=== PATIENT | female | born 1930 | race Caucasian/White ===

== ENCOUNTER 2016-11-15 19:33 | Inpatient (IN) ==
[2016-11-15] MEDS ORDERED: *HR* Morphine 2 MG/ML SYRINGE IVP ONE (22:08)
[2016-11-15] MEDS ORDERED: *HR* Heparin 5,000 UNIT/ML VIAL IVP ONE (22:08)
[2016-11-15] MEDS ORDERED: *HR* Heparin 5,000 UNIT/ML VIAL IVP PRN ×2 (22:08)
--- NOTE | 2016-11-15 22:10 | Emergency Department Note ---
START Narrative - START START: I examined this patient and my medical decision-making was reviewed with the [employer] OFFICIAL/PA/Advanced Practice Nurse/Resident Physician. I agree with the documented findings, disposition and treatment plan as described except to the extent set forth below. ED attending note: Patient seen with emergency medicine resident Dr. Ziegler. Please see a copy of his note for details of the H&P, evaluation, management and disposition of this patient. We independently had [id number] contact with the patient Briefly: A 86-year-old female otherwise healthy aside from hypertension several days of atraumatic pain and swelling of her entire left leg. Went to urgent care center today referred to the ER for further evaluation. Doppler study was ordered she has extensive DVT from the common iliacs all the way distally. Patient will be admitted and anticoagulated with baseline labs. Provided 45 minutes of critical care services for this patient. Denies chest pain or shortness of breath.
[2016-11-15] MEDS ORDERED: 0.9 % Sodium Chloride 1,000 ML IVC SCH (22:15)
--- NOTE | 2016-11-15 22:15 | Emergency Department Note ---
Disposition Clinical Impression: Deep vein thrombosis of lower extremity Qualifiers: Affected thrombotic vein of extremity: iliac Laterality: left Chronicity: acute Qualified Code(s): I82.422 - Acute embolism and thrombosis of left iliac vein Disposition: Admitted As Inpatient Condition: Undetermined Referrals: Renetta Dwyer CNP [Primary Care Provider] - Forms: ED Satisfaction Letter Time of Disposition: 23:35 Extremity Problem HPI - General Chief complaint: ED Extremity Problem,Nontraumatic Stated complaint: Leg and Foot pain, sent from pcp Time Seen by Provider: 11/15/16 21:37 Source: patient Mode of arrival: ambulatory Limitations: no limitations Nursing Notes Reviewed: Yes Vital Signs Reviewed: Yes - History of Present Illness HPI Narrative: 86-year-old female with history of hypertension arrives to [facility] emergency department after she states noticed swelling in her left lower extremity that started last night. Patient states that it is progressively got worse and she is having associated pain with it. She does admit to redness and swelling her left lower extremity. She denies any chest pain or difficulty breathing. The patient went to urgent care in [facility] who told her to come to the emergency department for further evaluation and she would need a DVT study. The patient denies any previous history of PE or DVT. The patient was brought in through triage and had a DVT study performed in the waiting area. This revealed a large thrombus proximal to the distal iliac all the way down her left lower extremity. The patient was brought back to a room at that time for further evaluation and workup. The patient denies any other complaints other than the pain associated with the left lower extremity. The patient denies any active cancers, recent surgeries, recent immobilizations, family history of PE or DVT. Pt Subjective Complaint: extremity pain, extremity swelling Onset (ago): day(s) (1) Consistency: constant Injury Location: left, lower extremity Pain Scale: 8 Quality: aching Radiation: none Improves with: nothing Worsens with: nothing Associated symptoms: Reports: denies other symptoms - Related Data Home Medications Medication Instructions Recorded Confirmed Adult Multivitamin Gummies 04/10/16 04/10/16 Cyclobenzaprine 04/10/16 Fish Oil 04/10/16 Fosamax 04/10/16 Gabapentin Enacarbil 04/10/16 Levothyroxine 04/10/16 Lisinopril 04/10/16 Miacalcin 04/10/16 Helena 10-325 mg 04/10/16 Pravastatin Sodium 04/10/16 Triamterene 04/10/16 Vitamin D 04/10/16 Zantac 04/10/16 Previous Rx's Medication Instructions Recorded Dicyclomine [Bentyl] 10 mg PO TID PRN #10 capsule 04/10/16 Loperamide [Imodium] 2 mg PO ONCE PRN #6 capsule 04/10/16 Meclizine [Antivert] 12.5 mg PO TID PRN #15 tablet 07/27/16 Ondansetron ODT [Zofran ODT] 4 mg SL Q8HR PRN #12 tab.rapdis 07/27/16 Allergies Allergy/AdvReac Type Severity Reaction Status Date / Time prednisone Allergy Nausea Verified 11/15/16 20:10 Sulfa (Sulfonamide Allergy Rash Verified 11/15/16 20:10 Antibiotics) Review of Systems: Review of Systems Constitutional: Denies fevers, chills, HEENT: Denies headache, Respiratory: Denies cough, sputum change, dyspnea Cardiac: Denies chest pain, pressure, palpitations, dyspnea on exertion, admits to left lower extremity pedal edema Gastrointestinal: Denies abdominal pain, changes in bowel habits, vomiting, nausea Genitourinary: Denies dysuria, Neurologic: Denies headaches, dizziness, syncope, focalized weakness, paraesthesias, weakness Musculoskeletal: Denies back pain, joint pain, myalgias All systems ED: reviewed and negative except as stated. Past Medical History - Past Medical History Attestation: Yes The following information was validated with the patient. Source: patient Medical history: Reports: hyperlipidemia, hypertension, thyroid disease, other Surgical history: Reports: cholecystectomy Psychiatric history: Reports: depression - Social History Smoking Status: Never smoker Smokeless Tobacco Status: No Alcohol use: Reports: none Drug use: Reports: none Physical Exam Physical Exam: General: Patient alert, no acute distress, not lethargic HEENT: Head normal inspection, atraumatic, PERRLA, oropharynx grossly intact and normal, trachea midline, no JVD Chest: Nontraumatic, nontender, normal chest rise CV: RRR with no murmurs, rubs, gallops Respiratory: Lungs clear to auscultation bilaterally, no rales, rhonchi, wheezes. Abdomen: Normal inspection, Normal bowel sounds 4 quadrants, nontender to palpation : Patient deferred Extremities: Left lower extremity swelling and erythema with ecchymotic appearing distal extremity in the left lower extremity, tenderness to calf and thigh on palpation. full range of motion, appropriate pulses, capillary refill under 2 seconds Neurological: Patient alert and oriented 3, cranial nerves II through XII grossly intact, GCS 15 Skin: Warm, intact, no rashes noted - General Limitations: no limitations General appearance: alert Course Vital Signs Temperature 98.3 F 11/15/16 20:07 Pulse Rate 91 11/15/16 20:07 Respiratory Rate 16 11/15/16 20:07 Blood Pressure 144/84 11/15/16 20:07 O2 Sat by Pulse Oximetry 98 11/15/16 20:07 Temperature 98.3 F 11/15/16 20:07 Pulse Rate 91 11/15/16 20:07 Respiratory Rate 16 11/15/16 20:07 Blood Pressure 144/84 11/15/16 20:07 O2 Sat by Pulse Oximetry 98 11/15/16 20:07 Oxygen Delivery Oxygen Delivery Room Air Extremity Problem, Nontraumati - MDM Narrative Medical decision making narrative: Dr. Mcdaniel accepts - Lab Data Lab results reviewed: Yes I reviewed the patient's lab results. Result diagrams: 11/15/16 22:24 11/15/16 22:24 Lab Results 11/15/16 11/15/16 11/15/16 Range/Units 22:24 22:24 22:24 WBC 8.3 (4.3-11.1) K/mcL RBC 4.70 (3.82-4.97) M/mcL Hgb 14.4 (11.5-15.4) g/dL Hct 43.1 (35.3-44.9) % MCV 91.7 (83.0-100.0) fL MCH 30.6 (28.0-33.3) pg MCHC 33.4 (31.6-35.5) g/dL RDW 12.8 (11.5-14.5) % Plt Count 133 L (140-400) K/mcL MPV 8.7 L (9.4-12.4) fL Immature Gran % 0.4 (0-4) % Seg Neutrophils % 68.7 % Lymphocytes % 17.8 % Monocytes % 9.7 % Eosinophils % 2.9 % Basophils % 0.5 % Neutrophils # 5.7 (1.6-8.9) K/mcL Lymphocytes # 1.5 (0.6-4.6) K/mcL Monocytes # 0.8 (0.0-1.3) K/mcL Eosinophils # 0.2 (0.0-0.6) K/mcL Basophils # 0.0 (0.0-0.2) K/mcL PT 10.9 (9.4-12.1) Seconds INR 1.0 APTT 31.9 (26.0-36.0) Seconds Sodium 138 (136-145) mEq/L Potassium 3.8 (3.5-4.5) mEq/L Chloride 102 (98-109) mEq/L Carbon Dioxide 26 (19-29) mEq/L BUN 32 H (7-20) mg/dL Creatinine 1.97 H (0.57-1.11) mg/dL Est GFR ( Amer) 29 L (> 60) Est GFR (Non-Af Amer) 24 L (> 60) BUN/Creatinine Ratio 16 (6-26) Glucose 109 H (70-99) mg/dL Calculated Osmolality 293 (280-300) Calcium 10.3 (8.6-10.8) mg/dL Troponin I (0-0.03) ng/mL 11/15/16 Range/Units 22:24 WBC (4.3-11.1) K/mcL RBC (3.82-4.97) M/mcL Hgb (11.5-15.4) g/dL Hct (35.3-44.9) % MCV (83.0-100.0) fL MCH (28.0-33.3) pg MCHC (31.6-35.5) g/dL RDW (11.5-14.5) % Plt Count (140-400) K/mcL MPV (9.4-12.4) fL Immature Gran % (0-4) % Seg Neutrophils % % Lymphocytes % % Monocytes % % Eosinophils % % Basophils % % Neutrophils # (1.6-8.9) K/mcL Lymphocytes # (0.6-4.6) K/mcL Monocytes # (0.0-1.3) K/mcL Eosinophils # (0.0-0.6) K/mcL Basophils # (0.0-0.2) K/mcL PT (9.4-12.1) Seconds INR APTT (26.0-36.0) Seconds Sodium (136-145) mEq/L Potassium (3.5-4.5) mEq/L Chloride (98-109) mEq/L Carbon Dioxide (19-29) mEq/L BUN (7-20) mg/dL Creatinine (0.57-1.11) mg/dL Est GFR ( Amer) (> 60) Est GFR (Non-Af Amer) (> 60) BUN/Creatinine Ratio (6-26) Glucose (70-99) mg/dL Calculated Osmolality (280-300) Calcium (8.6-10.8) mg/dL Troponin I 0.01 (0-0.03) ng/mL - Radiology Data Radiology results reviewed: Yes I reviewed the patient's radiology results. - EKG Data EKG attestation: Yes I reviewed and interpreted this EKG. EKG results narrative: Heart rate 73 bpm. MT interval 118 ms. QTC 46 ms. Normal axis. Normal sinus rhythm. Left axis deviation noted. EKG from 07/27/2016 identical in appearance. No acute changes noted.
[2016-11-15 22:32] LABS: Basophils % 0.5 %; Eosinophils # 0.2 K/mcL (0.0-0.6); Eosinophils % 2.9 %; Hematocrit 43.1 % (35.3-44.9); Hemoglobin 14.4 g/dL (11.5-15.4); Immature Granulocytes % 0.4 % (0-4); Lymphocytes # 1.5 K/mcL (0.6-4.6); Lymphocytes % 17.8 %; Mean Corpuscular HGB Conc 33.4 g/dL (31.6-35.5); Mean Corpuscular Hemoglobin 30.6 pg (28.0-33.3); Mean Corpuscular Volume 91.7 fL (83.0-100.0); Mean Platelet Volume 8.7 fL (9.4-12.4); Monocytes # 0.8 K/mcL (0.0-1.3); Monocytes % 9.7 %; Neutrophils # 5.7 K/mcL (1.6-8.9); Platelet Count 133 K/mcL (140-400); Red Cell Distribution Width 12.8 % (11.5-14.5); Segmented Neutrophils % 68.7 %
[2016-11-15 22:37] LABS: Prothrombin Time 10.9 Seconds (9.4-12.1)
[2016-11-15 22:40] LABS: Activated Partial Thrombo Time 31.9 Seconds (26.0-36.0)
[2016-11-15 22:48] LABS: Calcium 10.3 mg/dL (8.6-10.8); Potassium 3.8 mEq/L (3.5-4.5)
[2016-11-15] MEDS: Heparin 25,000 UNIT/500 ML D5W 25,000 UNIT/500 ML MLS IVC SCH (22:58)
[2016-11-16] MEDS ORDERED: Acetaminophen 325 MG TABLET PO PRN (01:07)
[2016-11-16] MEDS ORDERED: Naloxone 0.4 MG/ML INJ IVP PRN (01:07)
--- NOTE | 2016-11-16 01:07 | Internal Med History&Physical ---
<Nacho Mayers - Last Filed: 11/16/16 02:18> Date of Encounter: 11/16/16 Time of Encounter: 00:30 Assessment and Plan (1) Deep vein thrombosis of lower extremity Current visit: Yes Status: Acute After presentation of unilateral leg swelling and pain, patient found to have extensive DVT extending from iliac downward on left side (though there is some concern from the preliminary vascular report that the DVT extends upward beyond the iliac). Patient does not appear to have any PE currently. Aside from sitting a couple hours yesterday, she does not appear to have any personal or family risk factors for development of a DVT, that raises concern for an occult malignancy given patient's age. Continue patient on heparin drip Obtain VQ scan, given sedative patient kidneys unable to have CTA, and echocardiogram, to evaluate for right heart strain and assess left ventricular function Will order factor V Leiden, protein C, protein S We will consult hematology for assistance with continued workup We will consult interventional radiology for consideration of catheter directed thrombolysis We will order as needed Tylenol, Cameron, morphine for patient pain Qualifiers: Affected thrombotic vein of extremity: iliac Laterality: left Chronicity : acute Qualified Code(s): I82.422 - Acute embolism and thrombosis of left iliac vein (2) Chronic kidney disease (CKD) Current visit: Yes Status: Acute Per the prior chemistry performed at [facility], patient appears to have chronic kidney disease stage IV, though she is on the border between stage III-IV. Baseline GFR appears to be around 29. Currently GFR is at 24, which is low for her but not concerning for an acute event. We will hold her blood pressure medications as these can have a negative impact on her kidneys and she has not shown to have hypertension currently. Patient could also be slightly dehydrated given her age and being on 2 diuretic medications. We will hold her antihypertensive medications We will continue maintenance fluids at 75 mils an hour Patient will be receiving fluid with heparin drip Qualifiers: Chronic kidney disease stage: stage 4 (severe) Qualified Code(s): N18.4 - Chronic kidney disease, stage 4 (severe) (3) Chest pain Current visit: Yes Status: Acute Patient describes achy-sharp chest pain that began suddenly after being moved ( not moving herself) that is exacerbated by movement, [id number], and reproducible with palpation. EKG showed no acute changes concerning for ischemia and initial troponin was negative. It is unlikely a pulmonary embolism as there is no tachycardia or hypoxia, nor is there a pleuritic nature to her chest pain. This pain also developed after patient was already on heparin drip. His unlikely to be ACS given the atypical nature of the pain described, presentation, physical findings, negative troponin, and negative EKG. Patient is on heparin drip for treatment of DVT regardless which would be the medical treatment for both ACS or pulmonary embolism. We will obtain 1 more troponin We will continue to monitor for additional episodes of chest pain Patient on telemetry due to large nature DVT, will also assess for any additional EKG changes concerning for ischemia Pain control with morphine, Cameron, Tylenol depending on severity of patient pain Qualifiers: Chest pain type: other chest pain Qualified Code(s): R07.89 - Other chest pain; R07.8 - Other chest pain (4) Hypothyroid Current visit: Yes Status: Acute We will continue home levothyroxine (75 mcg) Qualifiers: Hypothyroidism type: unspecified Qualified Code(s): E03.9 - Hypothyroidism , unspecified (5) Hypertension Current visit: Yes Status: Acute Patient on triamterene-Hctz and lisinopril at home for hypertension, current kidney status appears chronic in nature, but patient has been normotensive. We will hold home antihypertensive medications Qualifiers: Hypertension type: essential hypertension Qualified Code(s): I10 - Essential (primary) hypertension Internal Medicine - H&P: HPI Chief complaint: Left Leg Swelling and Pain Admitted From: Home Plans for Post Hospital Care: Home History of present illness: Ms. Rosa is a 86 year old female with prior medical history of hypertension, hypothyroidism, and hyperlipidemia presents to [facility] with left leg swelling and pain. She states that yesterday she had been playing a board game (Ahonya) and had been sitting for several hours and when she arrived home she noticed her left leg appeared swollen. She went to bed that night taking the swelling would go away, but when she woke not only was the swelling still present but she also had extreme pain when she tried to bear any weight on her left leg. She presented to an urgent care who told her to go up to the emergency room for further evaluation. After not having workup fashion off, she went home only to return a couple hours later because of continued pain. A Doppler of the lower extremity revealed an extensive DVT from her left distal iliac down her entire leg (with potentially greater, non-visualized clot above where she could be imaged). She was placed on heparin drip and admitted to the hospital for further observation and workup. In no point in the day, or the encounter, that she complain of any difficulty breathing, shortness of breath, or pain on inspiration. Prior to being moved from the ER to the floor, patient had no other concerns/complaints, but after arriving on the floor she began to experience severe chest pain. She states this chest pain began in the middle of her chest, but had moved downward immediately inferior to her breasts. She states this pain is 10/10 severity, achy-sharp, nonradiating, exacerbated by movement, reproducible palpation, and associated with nausea. She has no complaints of lightheadedness, dizziness, presyncope, palpitations. Past Med Surg Social Fam HX - Past Medical History Medical history: hyperlipidemia, hypertension, thyroid disease, other Psychiatric history: depression - Past Surgical History Surgical History: cholecystectomy - Social History Smoking Status: Never smoker Smokeless Tobacco Status: No Alcohol use: none Drug use: none Internal Medicine - H&P: Meds Calcitonin-[place], Synthetic [Miacalcin] 200 unit IN DAILY 11/16/16 [History] Gabapentin [Neurontin] 100 mg PO DAILY 11/16/16 [History] Levothyroxine Sodium [Levo-T] 75 mcg PO DAILY 11/16/16 [History] Lisinopril [Zestril] 2.5 mg PO DAILY 11/16/16 [History] Pravastatin Sodium [Pravachol] 40 mg PO DAILY 11/16/16 [History] Triamterene-Hctz 75-50 mg Tab 75 mg PO QAM 11/16/16 [History] Zolpidem Tartrate [Zolpidem Tartrate] 5 mg PO HS 11/16/16 [History] Allergies prednisone Allergy (Verified 11/15/16 20:10) Nausea Sulfa (Sulfonamide Antibiotics) Allergy (Verified 11/15/16 20:10) Rash - Constitutional Constitutional: no chills, no fatigue, no fever(s), no weakness, no weight loss - EENT Eyes: no change in vision, no pain Nose, mouth and throat: no dysphagia, no sore throat - Cardiovascular Cardiovascular ROS IM: as per HPI, chest pain (From movement from ER), edema ( Left lower extremity), no diaphoresis, no dyspnea, no lightheadedness, no palpitations, no syncope - Respiratory Respiratory: no cough, no dyspnea, no hemoptysis, no wheezing, no pain on inspiration, no excessive phlegm production, no pain with cough - Gastrointestinal Gastrointestinal: no abdominal pain, no diarrhea, no hematemesis, no hematochezia, no melena, no nausea, no vomiting - Genitourinary Genitourinary: no dysuria, no hematuria - Musculoskeletal Musculoskeletal ROS IM: myalgias (The left lower extremity), no numbness, no tingling - Integumentary Integumentary IM: erythema, no rash - Neurological Neurological ROS: no confusion, no convulsions, no focal weakness, no numbness, no tingling, no tremor(s), no weakness - Constitutional Vitals: Temp Pulse Resp BP Pulse Ox 97.8 F 70 22 106/63 96 11/16/16 00:35 11/16/16 00:35 11/16/16 00:35 11/16/16 00:35 11/16/16 00:35 Exam: General: Cooperative, pleasant, no acute distress, alert and oriented 3, answers questions appropriately Head: Normocephalic, atraumatic, right lip curls downward (but no sign of face droop) Eye: Conjunctiva pink, sclera anicteric, EOMI, PERRL Neck: Supple, trachea midline, mucosa moist, no erythema or exudates noted oropharynx Respiratory: No accessory muscle usage, clear to auscultation bilaterally, no wheezes/rhonchi/rales appreciated Cardiovascular: Regular rate and rhythm, S1 and S2 present, no murmurs/rubs/ gallops/clicks appreciated GI/abdominal: Nondistended, nontender, soft, normal bowel sounds, no peritoneal signs Extremities: Left calf tender, increased erythema in left leg, increased edema and left leg, Homans sign positive, no ropiness palpated, pulses symmetric in bilateral lower extremities Neurological: Alert and oriented 3, no facial droop, no focal deficits Skin: Dry, intact, normal color, no rashes identified, reproducible lower chest pain on palpation Internal Med - H&P Results - Labs CBC & Chem 7: 11/15/16 22:24 11/15/16 22:24 - EKG Data -: EKG Interpreted by Myself EKG shows normal: sinus rhythm Rate: normal - EKG Data Prior EKG available for review: yes When compared to previous EKG: there is no significant change EKG comments: 11/16/16 01:45 Left axis deviation <JohnsonSaul shawcolettejatin - Last Filed: 11/16/16 02:48> Date of Encounter: 11/16/16 Internal Medicine - H&P: HPI History of present illness: Ms. Rosa is a 86 year old female Past Med Surg Social Fam HX - Family History Mother Name: Анна Caruso Living Status: Age at : 89 Cause of : "Old age" Hx Family Cardiac Disorders: Yes Hx Family Respiratory Disorders: No Hx Family Cancer: Yes Hx Family GI Disorders: No Hx Family Genitourinary Disorders: No Hx Family Endocrine Disorder: Yes Hx Family Musculoskeletal Disorders: No Hx Family Neuromuscular Disorders: No Hx Family Neurologic Disorders: No Hx Family Autoimmune Disorders: No Hx Family Reproductive Disorders: No Hx Family Psychosocial Disorders: No Hx Family Medical Disorders: Yes All Systems PM: A 10-system review of systems was performed and is negative for pertinent findings except as documented above in the HPI. - Constitutional Vitals: Temp Pulse Resp BP Pulse Ox 97.8 F 70 22 106/63 96 11/16/16 00:35 11/16/16 00:35 11/16/16 00:35 11/16/16 00:35 11/16/16 00:35 Internal Med - H&P Results - Labs CBC & Chem 7: 11/15/16 22:24 11/15/16 22:24 - Attending Attestation I examined this patient and my medical decision-making was reviewed with the REFRIGERATION OPERATOR/PA/Advanced Practice Nurse/Resident Physician. I agree with the documented findings, disposition and treatment plan as described except to the extent set forth below.
[2016-11-16] MEDS ORDERED: Sennosides/Docusate Sodium TABLET PO PRN (01:11)
[2016-11-16] MEDS: *HR* Morphine 2 MG/ML SYRINGE IVP PRN (02:07)
[2016-11-16] MEDS: Ondansetron 4 MG/2 ML VIAL IVP PRN (02:07)
[2016-11-16] MEDS: 0.9 % Sodium Chloride 1,000 ML IVC SCH ×2 (02:24→16:48)
[2016-11-16] MEDS: *HR* HYDROcodone/Acet 5/325 mg TABLET PO PRN ×4 (04:56→19:13)
[2016-11-16 06:46] LABS: INR 1.1; Prothrombin Time 12.3 Seconds (9.4-12.1)
[2016-11-16 06:50] LABS: Activated Partial Thrombo Time 83.7 Seconds (26.0-36.0)
[2016-11-16 06:57] LABS: Basophils # 0.1 K/mcL (0.0-0.2); Basophils % 0.7 %; Eosinophils # 0.1 K/mcL (0.0-0.6); Eosinophils % 1.4 %; Hematocrit 37.5 % (35.3-44.9); Immature Granulocytes % 0.3 % (0-4); Lymphocytes % 14.3 %; Mean Corpuscular HGB Conc 33.1 g/dL (31.6-35.5); Mean Corpuscular Hemoglobin 30.9 pg (28.0-33.3); Mean Corpuscular Volume 93.5 fL (83.0-100.0); Mean Platelet Volume 9.2 fL (9.4-12.4); Monocytes # 0.7 K/mcL (0.0-1.3); Monocytes % 9.7 %; Neutrophils # 5.1 K/mcL (1.6-8.9); Platelet Count 109 K/mcL (140-400); Red Blood Count 4.01 M/mcL (3.82-4.97); Segmented Neutrophils % 73.6 %
[2016-11-16 07:02] LABS: Calcium 9.1 mg/dL (8.6-10.8); Magnesium 1.7 mg/dL (1.6-2.6); Phosphorous 3.3 mg/dL (2.3-4.7); Potassium 3.7 mEq/L (3.5-4.5)
[2016-11-16 07:03] LABS: Hemoglobin 12.4 g/dL (11.5-15.4)
[2016-11-16] MEDS: Gabapentin 100 MG CAPSULE PO SCH (08:59)
--- NOTE | 2016-11-16 11:23 | Venous Imaging Report ---
LE Venous Duplex Patient Name:Анна Rosa Order Number:[id number] Procedure Date:11/15/2016 Date:1930Age:86 yrs Gender:Female Location:[facility] ED Room #: Hostess:Kamila Lebron RVT, RDCS Referring MD:Evaristo Ziegler DO inspector handbag frames:Renetta Dwyer, TICKET COLLECTOR Reading MD:Robb Stinson MD , FACS Primary Indications:R/O DVT Secondary Indications: Risk Factors Yes/No Hx of DVT No Anticoagulants No Impressions: Lower extremity abnormal deep exam: left iliac through tibial vein demonstrates acute thrombosis. Lower extremity abnormal superficial exam: left great saphenousvein and lesser saphenous vein demonstrates acute thrombosis. Recommendations: After imaging the patient was admitted to the emergency room. Test completed on 11/15/2016 at 11:04:01 pm. Critical findings reported to Dr. Juárez in person at 11:04:11 pm on 11/15/2016 by Kamila Lebron RVT, RDCS. Findings Venous Duplex Results: Right: Venous imaging of the lower extremity reveals full patency and normal vessel compressibility of the right common femoral. Doppler signals in the evaluated veins were normal. Left: There is an acute occlusive thrombus seen in the left distal iliac. It demonstrates an incompressible vein. Flow was continuous and it did not augment. There is an acute occlusive thrombus seen in the left common femoral. It demonstrates an incompressible vein. Flow was absent and it did not augment. There is an acute occlusive thrombus seen in the left superficial femoral. It demonstrates an incompressible vein. Flow was absent and it did not augment. There is an acute occlusive thrombus seen in the left popliteal. It demonstrates an incompressible vein. Flow was absent and it did not augment. There is an acute occlusive thrombus seen in the left posterior tibial. It demonstrates an incompressible vein. Flow was absent and it did not augment. There is an acute occlusive thrombus seen in the left peroneal. It demonstrates an incompressible vein. Flow was absent and it did not augment. There is an acute occlusive thrombus seen in the left saphenofemoral junction. It demonstrates an incompressible vein. Flow was absent and it did not augment. There is an acute occlusive thrombus seen in the left great saphenous. It demonstrates an incompressible vein. Flow was absent and it did not augment. There is an acute occlusive thrombus seen in the left lesser saphenous. It demonstrates an incompressible vein. Flow was absent and it did not augment. Lower Extremity Venous Duplex Side Vein Compress Spontaneous Flow Augment Diameter (cm) Depth (cm) Left Distal Iliac None no Continuous no Left Common Femoral None no Absent no Left Superficial Femoral None no Absent no Left Popliteal None Yes Absent no Left Posterior Tibial None Yes Absent no Left Peroneal None Yes Absent no Left Saphenofemoral Junction None Yes Absent no Left Great Saphenous None Yes Absent no Left Lesser Saphenous None Yes Absent no Right Common Femoral Normal Yes Phasic Yes Updated by Robb Stinson MD, FACS on 11/16/2016 11:17:21 AM Robb Stinson MD electronically signed on 11/16/2016 11:18:02 AM with status of Final
[2016-11-16] MEDS ORDERED: *HR* Warfarin 5 MG TABLET PO ONE (18:39)
--- NOTE | 2016-11-16 19:15 | Oncology Inp Consult Note ---
Date of Encounter: 11/16/16 Time of Encounter: 19:13 - Data of Consult Patient: new to practice Consult date: 11/16/16 Requesting Physician: Domi Palacio MD Primary Care Provider: Renetta Dwyer CNP - Consult Narrative Reason for consult: Suspected hypercoagulable state History of present illness: Ms. Rosa is a very pleasant 86-year-old woman seen in consultation regarding newly diagnosed left lower extremity DVT. She is primarily a patient of Ms. Dulce Dwyer CNP. She initially presented with progressive/painful left lower extremity swelling. She reports that she has been noticing some painless swelling in her left lower extremity over the last month or so and will be prior to admission, she stopped for 3 straight hrs to play a game of scrabble with her friends. She subsequently noted increased swelling in her left lower extremity and presented due to associated pain. Extremity Doppler on 11/15/16 confirmed extensive acute DVT involving the left iliac through the tibial vein. She also has acute superficial thrombus in the left greater and lesser saphenous veins. She is currently on anticoagulation with IV heparin and is tolerating anticoagulation well with no unexpected side effects. She is maintaining therapeutic anticoagulations values. Pain and swelling left lower extremity have significantly improved since admission. She is not having any pulmonary symptoms and was unable to have a CT angiogram due to underlying kidney dysfunction. VQ scan was low probability for PE. Hematology is consulted due to concern about underlying hypercoagulable state as basis for patients unexplained/unprovoked left lower extremity DVT. Question has also arisen regarding the benefit of catheter directed thrombolysis by IR given the extent of her lower extremity clot. Hospital team was diagnosed to discuss patient's case with regarding details of the clinical background. I have also reviewed her chart extensively for details at the time of seeing and examined patient at her bedside. She was in fairly good general health prior to current hospitalization and her medical comorbidities including hypertension, hyperlipidemia, hypothyroidism are fairly well controlled. She has not had a recent long distance travel or prolonged immobilization. She maintains a fairly active lifestyle and in spite of her advanced age, she lives alone and was hormone yard. 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 She also had extensive supportive family including his son stays with her at night. She does not have any prior diagnosis of malignancy, no recent medication changes, no underlying medical problems that can be the basis of hypercoagulable state. She is up-to-date and age-appropriate health maintenance and her last mammogram in July 2015 was unremarkable. Her last colonoscopy in May 2008 showed no neoplastic polyps involving the transverse, descending, sigmoid, distal sigmoid colon. Rest of past medical, surgical, family, social history detailed below and verified with the patient today. Review of systems: 12 point review of systems performed with patient and positive findings noted in history of present illness. All other systems are negative: Physical exam: Vital Signs Temp 98.7 F 11/16/16 15:36 Pulse 56 11/16/16 15:36 Resp 16 11/16/16 15:36 BP 114/52 11/16/16 15:36 Pulse Ox 98 11/16/16 15:36 GENERAL: Alert and oriented, appearing. Mental Status: Affect appropriate for circumstances HEENT: Sclerae anicteric. No mucositis or thrush. No other oral or pharyngeal lesions or erythema. Skin: No rashes or petechiae. No evidence of skin malignancy Lymph nodes: No cervical, supraclavicular, axillary, or inguinal adenopathy. Lungs: Clear to auscultation bilaterally. Clear to percussion bilaterally. Cardiovascular: Regular rate and rhythm. No gallops, murmurs, or rubs. Abdomen: Soft, nontender; No organomegaly or masses palpable. Extremities: Asymmetric swelling left lower extremity with congested appearance. No pain. No calf swelling or tenderness. No clinical evidence of vascular compromise. No joint deformity. Neurologic: Alert, Non ambulatory due to recommended bed rest. no focal weakness or sensory abnormalities. Results: Laboratory Last Values WBC 6.9 K/mcL (4.3-11.1) 11/16/16 06:20 RBC 4.01 M/mcL (3.82-4.97) 11/16/16 06:20 Hgb 12.4 g/dL (11.5-15.4) D 11/16/16 06:20 Hct 37.5 % (35.3-44.9) 11/16/16 06:20 MCV 93.5 fL (83.0-100.0) 11/16/16 06:20 MCH 30.9 pg (28.0-33.3) 11/16/16 06:20 MCHC 33.1 g/dL (31.6-35.5) 11/16/16 06:20 RDW 13.0 % (11.5-14.5) 11/16/16 06:20 Plt Count 109 K/mcL (140-400) L 11/16/16 06:20 MPV 9.2 fL (9.4-12.4) L 11/16/16 06:20 Immature Gran % 0.3 % (0-4) 11/16/16 06:20 Seg Neutrophils % 73.6 % 11/16/16 06:20 Lymphocytes % 14.3 % 11/16/16 06:20 Monocytes % 9.7 % 11/16/16 06:20 Eosinophils % 1.4 % 11/16/16 06:20 Basophils % 0.7 % 11/16/16 06:20 Neutrophils # 5.1 K/mcL (1.6-8.9) 11/16/16 06:20 Lymphocytes # 1.0 K/mcL (0.6-4.6) 11/16/16 06:20 Monocytes # 0.7 K/mcL (0.0-1.3) 11/16/16 06:20 Eosinophils # 0.1 K/mcL (0.0-0.6) 11/16/16 06:20 Basophils # 0.1 K/mcL (0.0-0.2) 11/16/16 06:20 PT 12.3 Seconds (9.4-12.1) H 11/16/16 06:20 INR 1.1 11/16/16 06:20 APTT 91.8 Seconds (26.0-36.0) H 11/16/16 14:01 Sodium 138 mEq/L (136-145) 11/16/16 06:20 Potassium 3.7 mEq/L (3.5-4.5) 11/16/16 06:20 Chloride 107 mEq/L (98-109) 11/16/16 06:20 Carbon Dioxide 19 mEq/L (19-29) 11/16/16 06:20 BUN 29 mg/dL (7-20) H 11/16/16 06:20 Creatinine 1.63 mg/dL (0.57-1.11) H 11/16/16 06:20 Est GFR ( Amer) 36 (> 60) L 11/16/16 06:20 Est GFR (Non-Af Amer) 30 (> 60) L 11/16/16 06:20 BUN/Creatinine Ratio 18 (6-26) 11/16/16 06:20 Glucose 128 mg/dL (70-99) H 11/16/16 06:20 Calculated Osmolality 293 (280-300) 11/16/16 06:20 Calcium 9.1 mg/dL (8.6-10.8) 11/16/16 06:20 Phosphorus 3.3 mg/dL (2.3-4.7) 11/16/16 06:20 Magnesium 1.7 mg/dL (1.6-2.6) 11/16/16 06:20 Troponin I 0.00 ng/mL (0-0.03) 11/16/16 06:20 Radiographic studies: I personally reviewed and interpreted patient's most recent imaging studies dated 11/16/16. I discussed the findings with the patient today. Pulmonary Perfusion Imaging 11/16/16 01:12 IMPRESSION: Normal VQ scan. D/ / Kanu Werner MD / Kanu Werner MD Interpreting Provider: Kanu Werner MD Chest X-Ray 11/16/16 11:51 IMPRESSION: No acute cardiopulmonary process. D/ / 11/16/2016 13:36:14 Arely James MD / Cesilia Saenz Interpreting Provider: Arely James MD Impression/recommendations: Unexplained left lower extremity DVT: At todays visit, I had a detailed discussion with the patient regarding the diagnostic considerations for her simulation performed DVT and we discussed the basics for concern about an underlying hypercoagulable state. Given her advanced age, malignancy certainly a concern in her presentation raises concern about the possibility of extrinsic compression of left lower extremity veins possibly be a pelvic mass lesion such as lymph node or tumor. I consider returned hypercoagulable state less likely although testing is pertinent for completeness. Based on the above, will recommend: Plse send Factor V Leiden and prothrombin gene mutation testing and D-Dimer. If she is able to, obtain contrast enhanced imaging of the chest abdomen pelvis to evaluate for obstructing mass lesion/occult malignancy. If unable to have contrast imaging d/t persistent kidney dysfunction, we can get noncontrast imaging and plan further evaluation based on findings. Depending on planned duration of anticoagulation, we will need to complete the rest of her thrombophilia studies which cannot be performed while she is on active anticoagulation and with recent clot. Discussion with him as an outpatient. Regarding the question of catheter directed thrombolysis, I do not see any evidence of vascular compromise to her limb on my exam and her swelling and pain have admittedly improved significantly since starting anticoagulation. Based on above and given patient's advanced age, I suspect that the risk of catheter directed thrombolysis such as bleeding and embolization likely outweighs the benefits and I favor continuing supportive management as we are doing. Agree with bed rest for 24-48 hours and if swelling and pain improved and she is well established on anticoagulation, will get her to ambulate to prevent further complications of prolonged immobility including clot propagation and increased her risk for post-thrombotic syndrome. Regarding anticoagulation: I agree with ongoing anticoagulation with IV heparin. Since her symptoms are improving, I think she can be transitioned to subcu Lovenox 1 mg/kg twice a day after 24 hours of IV heparin. She is being transitioned to Coumadin which I think is very reasonable. We will continue Lovenox until INR is therapeutic (2-3) for 48 hours. She will need anticoagulation for 3-6 months at a minimum depending on findings of ongoing evaluation for underlying hypercoagulable state. We will discuss transitioning her to NOACs as an outpatient.Will plan to see her in the clinic 1-2 weeks post discharge. Thrombocytopenia: Likely due to platelet consumption by active clots. No intervention needed for current cancer will simply monitor. If persistent, we will complete workup for thrombocytopenia. In the event of an expected worsening of her thrombocytopenia to contraindicate anticoagulation, IVC filter placement can be considered although I do not believe it is indicated at this time. We'll follow the patient along side you during this hospitalization but please do not hesitate to call regarding interval hematologic questions as they arise. Thank you for your excellent ongoing care for allowing us to see while in- house. This report was created using voice recognition software and may contain errors. It was signed but not edited to expedite communication. Past Med Surg Social Fam HX - Past Medical History Medical history: hyperlipidemia, hypertension, thyroid disease, other Psychiatric history: depression - Past Surgical History Surgical History: cholecystectomy - Social History Smoking Status: Never smoker Smokeless Tobacco Status: No Alcohol use: none Drug use: none - Family History Mother Name: Анна Caruso Living Status: Age at : 89 Cause of : "Old age" Hx Family Cardiac Disorders: Yes Hx Family Respiratory Disorders: No Hx Family Cancer: Yes Hx Family GI Disorders: No Hx Family Genitourinary Disorders: No Hx Family Endocrine Disorder: Yes Hx Family Musculoskeletal Disorders: No Hx Family Neuromuscular Disorders: No Hx Family Neurologic Disorders: No Hx Family Autoimmune Disorders: No Hx Family Reproductive Disorders: No Hx Family Psychosocial Disorders: No Hx Family Medical Disorders: Yes Medications and Allergies Calcitonin-[place], Synthetic [Miacalcin] 1 spray NS DAILY 11/16/16 [History] Calcium Carbonate [Calcium] 500 mg PO DAILY 11/16/16 [History] Cholecalciferol (D-3) [Vitamin D] 1,000 unit PO DAILY 11/16/16 [History] Gabapentin [Neurontin] 100 mg PO DAILY 11/16/16 [History] Levothyroxine Sodium [Levo-T] 75 mcg PO QAM 11/16/16 [History] Lisinopril [Zestril] 2.5 mg PO DAILY 11/16/16 [History] Pravastatin Sodium [Pravachol] 40 mg PO HS 11/16/16 [History] Triamterene/HCTZ 37.5/25mg [Dyazide] 1 each PO DAILY 11/16/16 [History] Zolpidem Tartrate [Zolpidem Tartrate] 5 mg PO HS 11/16/16 [History] Allergies prednisone Allergy (Verified 11/15/16 20:10) Nausea Sulfa (Sulfonamide Antibiotics) Allergy (Verified 11/15/16 20:10) Rash Oncology - Exam - Constitutional Vitals: Temp Pulse Resp BP Pulse Ox 98.7 F 56 16 114/52 98 11/16/16 15:36 11/16/16 15:36 11/16/16 15:36 11/16/16 15:36 11/16/16 15:36 Oncology - Results - Labs Labs: Short CBC 11/16/16 Range/Units 06:20 WBC 6.9 (4.3-11.1) K/mcL Hgb 12.4 D (11.5-15.4) g/dL Hct 37.5 (35.3-44.9) % Plt Count 109 L (140-400) K/mcL Neutrophils # 5.1 (1.6-8.9) K/mcL BMP 11/16/16 06:20 Sodium 138 Potassium 3.7 Chloride 107 Carbon Dioxide 19 BUN 29 H Creatinine 1.63 H Glucose 128 H Calcium 9.1 Cardiac Enzymes 11/16/16 Range/Units 06:20 Troponin I 0.00 (0-0.03) ng/mL Consult Discharge Plan - Plan Referrals: Reymundo,Renetta Sullivan CNP [Primary Care Provider] - (Web requested 11-16-16)
[2016-11-17] MEDS: Heparin 25,000 UNIT/500 ML D5W 25,000 UNIT/500 ML MLS IVC SCH (03:32)
[2016-11-17 07:33] LABS: Basophils % 0.5 %; Eosinophils # 0.4 K/mcL (0.0-0.6); Eosinophils % 5.8 %; Hematocrit 36.8 % (35.3-44.9); Immature Granulocytes % 0.3 % (0-4); Lymphocytes # 1.4 K/mcL (0.6-4.6); Lymphocytes % 22.7 %; Mean Corpuscular HGB Conc 32.6 g/dL (31.6-35.5); Mean Corpuscular Hemoglobin 30.5 pg (28.0-33.3); Mean Corpuscular Volume 93.4 fL (83.0-100.0); Mean Platelet Volume 9.2 fL (9.4-12.4); Monocytes # 0.6 K/mcL (0.0-1.3); Monocytes % 9.8 %; Neutrophils # 3.8 K/mcL (1.6-8.9); Platelet Count 113 K/mcL (140-400); Red Blood Count 3.94 M/mcL (3.82-4.97); Red Cell Distribution Width 13.2 % (11.5-14.5); Segmented Neutrophils % 60.9 %
[2016-11-17 07:36] LABS: Calcium 8.3 mg/dL (8.6-10.8); Potassium 3.5 mEq/L (3.5-4.5)
[2016-11-17] MEDS: Gabapentin 100 MG CAPSULE PO SCH (07:45)
--- NOTE | 2016-11-17 09:31 | ECHO - Doppler Report ---
Echocardiogram Name: Анна Rosa Date of Study: 11/16/2016 Date: 1930 Ht: 60.0 in Medical Record#: [id number] Age: 86 Wt: 140.0 lb Gender: Female BSA: 1.6 Order #: [id number] Location: [facility] Room #: 2A34 Reading Physician: Ryan Nolen DO, AURELIA MALONEY Back Order Clerk: Estrella Heart RDCS Ordering Physician: Nacho Mayers DO Primary Physician: Renetta Dwyer CNP Indications: Deep vein thrombosis, Evaluate right ventricular strain Impressions: LVEF 55-60%. Normal LV chamber size and function. Mild concentric left ventricular hypertrophy. Mild left ventricular diastolic dysfunction. Normal right ventricular structure and function. Mild to moderately dilated left atrium. Mild aortic regurgitation. Mild aortic sclerosis, but no significant stenosis. Mean gradient 12 mmHg. Borderline mild pulmonary hypertension. Estimated RVSP is 35 mmHg. Left Ventricular Wall Motion: Rest Echo Findings All wall segments showed normal motion. Findings: Study Quality * Technically adequate exam. ECG Findings * Sinus bradycardia. Left Ventricle * LVEF 55-60%. * Normal LV chamber size and function. * Mild concentric left ventricular hypertrophy. * Mild left ventricular diastolic dysfunction. Right Ventricle * Normal right ventricular structure and function. Left Atrium * Mild to moderately dilated left atrium. Right Atrium * Normal right atrial size. Interatrial Septum * Interatrial septum not well evaluated. Aortic Valve * Trileaflet aortic valve. * Mildly sclerotic aortic valve leaflets with focal areas of calcification. * Mild aortic regurgitation. * Mild aortic sclerosis, but no significant stenosis. Mean gradient 12 mmHg. Mitral Valve * Normal mitral valve structure and function. * No mitral stenosis. * Trace mitral regurgitation. Tricuspid Valve * Normal tricuspid valve structure. * Borderline mild pulmonary hypertension. * Estimated RVSP is 35 mmHg. * Estimated RA pressure is 5 mmHg. Pulmonic Valve * Normal pulmonic valve structure and function. * No pulmonic regurgitation. Aorta * Normally sized aortic root. Pericardium * The pericardium appears normal. IVC * Normal IVC dimensions and inspiratory collapse. Pulmonary Artery * Normal visualized portions of the main pulmonary artery. History Hypertension Hypercholesteremia Family History of CAD Valvular Disease 08-09-16 a Previous Echo was performed. Measurements: BP: 109/ 64 2D Normal Values RVIDd: 3.20 cm <2.7 cm IVSd: 1.20 cm 0.6 - 1.0 cm LVIDd: 3.50 cm 3.7 - 5.6 cm LVPWd: 1.20 cm 0.6 - 1.1 cm LVIDs: 2.55 cm 1.5 - 3.6 cm AO: 2.70 cm < 4.0 cm LA: 3.35 cm 2.0 - 4.0cm %FS: 25.70 cm >25 % LVOT Diam: 1.90 cm LA volume: 57 Mitral Valve Peak E:.94 m/sec Peak A:1.01 m/sec E/A Ratio:0.9 Peak E' Lat Michael:8.29 cm/s Peak E' Med Michael:7.12 cm/s E/E' Lat Ratio:11.4 E/E' Med Ratio:13.2 LVOT Peak Michael:.99 m/sec Mean Michael:.63 m/sec Peak Grad:4.00 mmHg Mean Grad:2.00 mmHg Aortic Valve Peak Michael:2.23 m/sec Mean Michael:1.65 m/sec Peak Grad:20.00 mmHg Mean Grad:12.00 mmHg Valve Area:1.19 cm2 AI pressure Half-time: 561.00 msec Tricuspid Valve TV Regurg Peak Grad: 30.00mmHg TV Regurg Peak Michael: 2.76m/sec Updated by Ryan Nolen DO, FACVinita, AURELIA, KWAME on 11/17/2016 9:24:39 AM electronically signed on 11/17/2016 9:25:44 AM with status of Final Wall Motion Vicente: 1=Normal, 2=Hypokinesis, 3=Akinesis, 4=Dyskinesis, 5=Aneurysmal, 6=Hyperkinetic, X=Not Visualized (Blank)=Missing
[2016-11-17] MEDS: *HR* HYDROcodone/Acet 5/325 mg TABLET PO PRN ×2 (11:03→18:39)
[2016-11-17] MEDS: *HR* Morphine 2 MG/ML SYRINGE IVP PRN ×2 (13:32→21:16)
--- NOTE | 2016-11-17 13:36 | Internal Med Progress Note ---
Date of Encounter: 11/17/16 Time of Encounter: 13:34 - Assessment and plan (1) Deep vein thrombosis of lower extremity Status: Acute Assessment and plan: worsening left leg edema and pain today; stat repeat CT left LE shows significant lymphedema due to acute DVT; continue anticoagulation with IV Heparin drip and oral Coumadin; leg elevation and pain control with PRN IV Morphine and oral Percocet; supportive care; Hematology consult appreciated, agrees with current management; Qualifiers: Affected thrombotic vein of extremity: iliac Laterality: left Chronicity : acute Qualified Code(s): I82.422 - Acute embolism and thrombosis of left iliac vein (2) Chronic kidney disease (CKD) Status: Chronic Assessment and plan: patient likely has underlying CKD due to HTN and age-related changes; continue to follow serum creatinine; Qualifiers: Chronic kidney disease stage: stage 4 (severe) Qualified Code(s): N18.4 - Chronic kidney disease, stage 4 (severe) (3) Hypothyroid Status: Chronic Qualifiers: Hypothyroidism type: unspecified Qualified Code(s): E03.9 - Hypothyroidism , unspecified (4) Hypertension Status: Chronic Qualifiers: Hypertension type: essential hypertension Qualified Code(s): I10 - Essential (primary) hypertension - Subjective Interval history: Report significant pain in left leg today, associated with worsening swelling spreading up to her left thigh into her groin. No chest pain, shortness of breath, fever. - Constitutional Vitals: Temp Pulse Resp BP Pulse Ox 97.9 F 52 18 106/59 97 11/17/16 07:23 11/17/16 07:23 11/17/16 07:23 11/17/16 07:23 11/17/16 07:23 General appearance: Present: mild distress, A&O X 3, answers questions appropriately - Respiratory Respiratory exam: Present: CTAB. Absent: accessory muscle use, rales, rhonchi, wheezes - Cardiovascular Cardiovascular exam: Present: RRR, +S1, +S2. Absent: diastolic murmur, gallop, rubs, systolic murmur - GI/Abdominal GI/Abdominal exam: Present: normal bowel sounds, soft, no peritoneal signs. Absent: distended, tenderness - Extremities Exam Extremities exam: Present: warm, radial pulses palpable and symetrical. Absent : calf tenderness, cyanotic, pedal edema Additional comments: Diffuse edema, tenderness and mild erythema over left lower extremity, slightly worsening since yesterday. Edema extends up to her groin. 1+ distal pedal and popliteal pulses palpable. Internal Medicine: Result - Labs CBC & Chem 7: 11/17/16 13:37 11/20/16 03:59 Labs: Short CBC 11/17/16 Range/Units 07:09 WBC 6.2 (4.3-11.1) K/mcL Hgb 12.0 (11.5-15.4) g/dL Hct 36.8 (35.3-44.9) % Plt Count 113 L (140-400) K/mcL Neutrophils # 3.8 (1.6-8.9) K/mcL BMP 11/17/16 07:09 Sodium 140 Potassium 3.5 Chloride 108 Carbon Dioxide 21 BUN 28 H Creatinine 1.66 H Glucose 99 Calcium 8.3 L - ABG Interpretation ABG results: PT/INR, D-dimer PT 12.3 Seconds (9.4-12.1) H 11/16/16 06:20 Consult Discharge Plan - Plan Instructions: Warfarin (By mouth), Deep Venous Thrombosis (DC), Chronic Hypertension (DC) Referrals: Renetta Dwyer CNP [Primary Care Provider] - 11/22/16 3:00 pm () Thang Day MD [Partnered Physician] - 12/04/16 11:30 am (Please follow up at this time at the cancer center) Prescriptions: HYDROcodone/Acet 5/325 mg [[place] 5-325 mg] 1 tab PO Q8H PRN #21 tablet PRN Reason: Pain Warfarin perPT [Coumadin perPT] 2 mg PO DAILY@1800 #30 each
[2016-11-17 14:01] LABS: Basophils % 0.5 %; Eosinophils # 0.4 K/mcL (0.0-0.6); Hematocrit 37.4 % (35.3-44.9); Hemoglobin 12.4 g/dL (11.5-15.4); Immature Granulocytes % 0.3 % (0-4); Lymphocytes # 1.5 K/mcL (0.6-4.6); Lymphocytes % 22.7 %; Mean Corpuscular HGB Conc 33.2 g/dL (31.6-35.5); Mean Corpuscular Hemoglobin 30.8 pg (28.0-33.3); Mean Corpuscular Volume 92.8 fL (83.0-100.0); Mean Platelet Volume 9.1 fL (9.4-12.4); Monocytes # 0.5 K/mcL (0.0-1.3); Monocytes % 8.5 %; Platelet Count 130 K/mcL (140-400); Red Blood Count 4.03 M/mcL (3.82-4.97); Red Cell Distribution Width 13.2 % (11.5-14.5)
[2016-11-17] MEDS ORDERED: *HR* Warfarin 5 MG TABLET PO ONE (18:00)
[2016-11-17] MEDS ORDERED: Warfarin perPT PO PRN (18:00)
[2016-11-18 05:27] LABS: INR 1.3; Prothrombin Time 13.8 Seconds (9.4-12.1)
[2016-11-18 05:41] LABS: Calcium 8.5 mg/dL (8.6-10.8); Potassium 3.7 mEq/L (3.5-4.5)
[2016-11-18] MEDS: Ondansetron 4 MG/2 ML VIAL IVP PRN (08:02)
[2016-11-18] MEDS: Gabapentin 100 MG CAPSULE PO SCH (08:02)
[2016-11-18] MEDS: Heparin 25,000 UNIT/500 ML D5W 25,000 UNIT/500 ML MLS IVC SCH (08:06)
--- NOTE | 2016-11-18 09:00 | Electrocardiograph Report ---
[place] [address] Test Date: 2016-11-15 Pat Name: Анна Rosa Department: 105 Room: 2A Gender: F [employer]: : 1930 Requested By: Evaristo Ziegler Order Number: [id number] Reading MD: Cuauhtemoc Blackman MD Measurements Intervals [place] Rate: 73 P: 7 FL: 198 QRS: -38 QRSD: 114 T: 2 QT: 380 QTc: 406 Interpretive Statements SINUS RHYTHM MARKED LEFT AXIS DEVIATION Poor R wave progression INTRAVENTRICULAR CONDUCTION DELAY VOLTAGE CRITERIA FOR LVH Electronically Signed On 11-18-2016 8:59:05 EDT by Cuauhtemoc Blackman MD
[2016-11-18] MEDS ORDERED: *HR* HYDROcodone/Acet 10/325 mg TABLET PO PRN (13:46)
--- NOTE | 2016-11-18 14:27 | Oncology Inp Progress Note ---
<Susan Jack E - Last Filed: 11/18/16 14:23> Date of Encounter: 11/18/16 Time of Encounter: 14:00 (1) Deep vein thrombosis of lower extremity Current Visit: Yes Status: Acute Assessment and plan: may transition to Lovenox and Coumadin. Will see as outpatient in f/u. Qualifiers: Affected thrombotic vein of extremity: iliac Laterality: left Chronicity : acute Qualified Code(s): I82.422 - Acute embolism and thrombosis of left iliac vein Oncology: Subj Interval history: Patient seen and evaluated at bed side. Continues Heparin drip and Coumadin. INR 1.3 Patient very excited that swelling in L leg is decreasing. Pain is also decreasing. Denies abnormal bleeding, chest pain, shortness of breath. - Constitutional Vitals: Vital Signs Temp Pulse Resp BP Pulse Ox 11/18/16 11:16 97.9 F 68 18 110/63 98 11/18/16 07:50 98.8 F 61 18 134/65 91 11/18/16 03:49 98.3 F 66 16 129/64 96 11/18/16 00:13 97.5 F L 69 16 109/62 96 11/17/16 19:56 98.1 F 67 16 128/57 95 11/17/16 15:12 97.6 F 62 15 107/57 96 Intake and Output 11/17/16 11/18/16 11/18/16 23:59 07:59 15:59 Intake Total 344 / 344 200 / 200 Output Total 600 / 600 500 / 500 390 / 390 Balance -256 / -256 -300 / -300 -390 / -390 Intake: IV Fluids 104 / 104 Heparin 25,000 UNIT/500 104 / 104 ML D5W 25,000 unit In 500 ml @ 14 UNIT/KG/HR 17. 781 mls/hr IVC .Q24H [facility] Rx#:[id number] Oral 240 / 240 200 / 200 Output: Urine 600 / 600 500 / 500 390 / 390 Other: Meal Dinner Percent of Meal Consumed 100% # Voids 1 Weight 69.037 kg Patient Weight 11/18/16 23:59 Weight 69.037 kg General appearance: cooperative, no acute distress - Head Head exam: Present: normal inspection - ENT ENT exam: Present: mucous membranes moist - Respiratory Respiratory exam: Present: CTAB - Cardiovascular Cardiovascular exam: Present: RRR - GI/Abdominal GI/Abdominal exam: Present: normal bowel sounds, soft - Extremities Exam Additional comments: Left leg remains edematous, without erythema. No edema R leg. Both warm to touch. - Neurological Exam Neurological exam: Present: alert, oriented X3 - Psychiatric Psychiatric exam: Present: normal affect, normal mood Oncology: Obj Data - Labs CBC & Chem 7: 11/17/16 13:37 11/18/16 04:34 Labs: Laboratory Results - last 24 hr 11/17/16 11/18/16 11/18/16 13:37 04:34 04:34 PT 13.8 H INR 1.3 APTT 89.7 H Sodium 140 Potassium 3.7 Chloride 107 Carbon Dioxide 22 BUN 26 H Creatinine 1.82 H Est GFR ( Amer) 32 L Est GFR (Non-Af Amer) 26 L BUN/Creatinine Ratio 14 Glucose 89 Calculated Osmolality 294 Calcium 8.5 L - Impressions Impressions Lower Extremity CT 11/17/16 13:32 IMPRESSION: 1. No acute osseous abnormality. 2. Diffuse subcutaneous fat stranding compatible with cellulitis versus lymphedema. No drainable fluid collection. 3. Tricompartmental degenerative changes of the knee with a small effusion and small popliteal cyst. D/ / Ryan Tatum MD / Ryan Tatum MD Interpreting Provider: Ryan Tatum MD - ABG Interpretation ABG results: PT/INR, D-dimer PT 13.8 Seconds (9.4-12.1) H 11/18/16 04:34 Consult Discharge Plan - Plan Referrals: Renetta Dwyer CNP [Primary Care Provider] - (Web requested 11-16-16) Thang Day MD [Partnered Physician] - 12/04/16 11:30 am (Please follow up at this time at the cancer center) <Thang Day - Last Filed: 11/19/16 08:10> Date of Encounter: 11/19/16 - Constitutional Vitals: Vital Signs Temp Pulse Resp BP Pulse Ox 11/19/16 06:58 98.9 F 62 16 111/66 95 11/19/16 04:48 98.2 F 74 18 138/62 92 11/18/16 23:41 98.4 F 92 18 96/53 92 11/18/16 19:00 98.4 F 78 18 129/61 94 11/18/16 15:33 98.6 F 64 17 139/72 97 11/18/16 11:16 97.9 F 68 18 110/63 98 Intake and Output 11/18/16 11/19/16 11/19/16 16:59 00:59 08:59 Intake Total 100 / 100 Output Total 390 / 390 Balance -290 / -290 Intake: IV Fluids 100 / 100 Heparin 25,000 UNIT/500 100 / 100 ML D5W 25,000 unit In 500 ml @ 14 UNIT/KG/HR 17. 781 mls/hr IVC .Q24H [facility] Rx#:[id number] Output: Urine 390 / 390 Other: # Voids 1 Oncology: Obj Data - Labs CBC & Chem 7: 11/17/16 13:37 11/18/16 04:34 Labs: Laboratory Results - last 24 hr 11/18/16 11/18/16 11/18/16 14:04 15:08 15:08 PT INR APTT 90.7 H D-Dimer 2059 H Prothrombin Mut Interp Normal 11/19/16 03:37 PT 25.2 H D INR 2.3 D APTT D-Dimer Prothrombin Mut Interp - Impressions Impressions Retroperitoneum Ultrasound 11/18/16 16:00 IMPRESSION: Atrophic kidneys. D/ / Alexey Blue MD / Alexey Blue MD Interpreting Provider: Alexey Blue MD Abdomen/Pelvis CT 11/18/16 16:30 IMPRESSION: Acute thrombosis of the left external iliac vein extending to the common femoral vein with secondary moderate edema in the upper aspect of the left thigh. No underlying mass or compression is seen. Interval cholecystectomy. D/ / Vic Kaye MD / Vic Kaye MD Interpreting Provider: Vic Kaye MD Chest CT 11/18/16 16:30 IMPRESSION: No acute intrathoracic process identified. D/ / Lisandra Noble Cha, MD / Lisandra Noble Cha, MD Interpreting Provider: Lisandra Noble Cha, MD - ABG Interpretation ABG results: PT/INR, D-dimer PT 25.2 Seconds (9.4-12.1) H D 11/19/16 03:37 D-Dimer 2059 ng/mLFEU (0-500) H 11/18/16 15:08 - Attending Attestation I saw and personally examined Ms. Rosa at her bedside today and reviewed the chart for details of ongoing care by hospital team. I verified/agree with the history and physical exam findings documented by Cesilia Jack SOFT MUD MOLDER above. Patient continues to make steady clinical improvement. Leg swelling is considerably better. Pain is completely resolved. She is in very good spirits. Fortunately, her imaging from earlier today does not show any evidence of underlying malignancy to explain her extremity DVT. She is tolerating Coumadin well with no effective side effects. She decide against subcutaneous Lovenox and continues on IV heparin. Since she's been on heparin infusion for the last 48 hours, I think is reasonable for her to start ambulate at this point. We'll continue heparin infusion until INR therapeutic for 48 hours following which can be stopped and she can continued on Coumadin. Upon discharge, she will need referral to the Coumadin clinic for ongoing management of her anticoagulation. [place] has an option follow up with me scheduled for 12/04/16 and will continue ongoing and accommodation management as well as thrombophilia workup an outpatient basis. Thanks for malignancy or while in-house. We will follow her along with you but please do not hesitate to call regarding internal questions that may arise.
[2016-11-18] MEDS ORDERED: *HR* Warfarin 2.5 MG TABLET PO ONE (18:00)
[2016-11-19 04:51] LABS: INR 2.3; Prothrombin Time 25.2 Seconds (9.4-12.1)
[2016-11-19] MEDS: Gabapentin 100 MG CAPSULE PO SCH (07:39)
[2016-11-19 08:13] LABS: Protein C, Functional 180 % (83-168); Protein S, Functional 109 % (57-131)
--- NOTE | 2016-11-19 16:44 | Internal Med Progress Note ---
<Bucky Brooks - Last Filed: 11/19/16 16:41> Date of Encounter: 11/19/16 Time of Encounter: 11:05 - Assessment and plan (1) Deep vein thrombosis of lower extremity Current Visit: Yes Status: Acute Assessment and plan: spontaneous. CT of the abdomen / pelvis and chest due not reveal etiology. Factor V leiden and prothrombin normal. Normal protein C and S. Etiology unclear at this time. will need all age appropriate cancer screening as outpatient. Will follow up with heme. INR therapeutic . Dc heparin gtt. 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 Qualifiers: Chronic kidney disease stage: stage 4 (severe) Qualified Code(s): N18.4 - Chronic kidney disease, stage 4 (severe) (3) Hypothyroid Current Visit: Yes Status: Acute Assessment and plan: continue synthroid. Qualifiers: Hypothyroidism type: unspecified Qualified Code(s): E03.9 - Hypothyroidism , unspecified (4) Chest pain Current Visit: Yes Status: Acute Assessment and plan: appeas to have been musculoskelatal. Per medical record. Resolved/ Patient has no further complaints since admission. TN negative X 2. Qualifiers: Chest pain type: other chest pain Qualified Code(s): R07.89 - Other chest pain; R07.8 - Other chest pain (5) Frail elderly Current Visit: Yes Status: Acute - Subjective Interval history: No major events overnight. Patient states she is feeling much better. she reports that the swelling in her left leg is going down and she is without pain. she states she was able to walk in the [place] this AM without difficulty. She denies any chest pain or dyspnea. she has no further complaints or concerns at this time. - Constitutional Vitals: Temp Pulse Resp BP Pulse Ox 99.3 F 69 16 114/67 95 11/19/16 15:16 11/19/16 15:16 11/19/16 15:16 11/19/16 15:16 11/19/16 15:16 General appearance: Present: A&O X 3, answers questions appropriately - Head Head exam: Present: atraumatic, normocephalic - Eye Eye exam: Present: PERRL, conjuntiva pink, sclera anicteric Pupils: Present: PERRL - Neck Neck exam general surgery: Present: supple, trachea midline. Absent: lymphadenopathy - Respiratory Respiratory exam: Present: CTAB. Absent: accessory muscle use, rales, rhonchi, wheezes - Cardiovascular Cardiovascular exam: Present: RRR, +S1, +S2. Absent: diastolic murmur, gallop, rubs, systolic murmur - GI/Abdominal GI/Abdominal exam: Present: normal bowel sounds, soft, no peritoneal signs. Absent: distended, tenderness - Extremities Exam Extremities exam: Present: pedal edema (she has 1+ edema to the knee in the left leg. ), warm, radial pulses palpable and symetrical. Absent: calf tenderness, cyanotic - Skin Skin exam: Present: dry, intact Internal Medicine: Result - Labs CBC & Chem 7: 11/17/16 13:37 11/18/16 04:34 - ABG Interpretation ABG results: PT/INR, D-dimer PT 25.2 Seconds (9.4-12.1) H D 11/19/16 03:37 D-Dimer 2059 ng/mLFEU (0-500) H 11/18/16 15:08 - Impressions Impressions Retroperitoneum Ultrasound 11/18/16 16:00 IMPRESSION: Atrophic kidneys. D/ / Alexey Blue MD / Alexey Blue MD Interpreting Provider: Alexey Blue MD Abdomen/Pelvis CT 11/18/16 16:30 IMPRESSION: Acute thrombosis of the left external iliac vein extending to the common femoral vein with secondary moderate edema in the upper aspect of the left thigh. No underlying mass or compression is seen. Interval cholecystectomy. D/ / Vic Kaye MD / Vic Kaye MD Interpreting Provider: Vic Kaye MD Chest CT 11/18/16 16:30 IMPRESSION: No acute intrathoracic process identified. D/ / Lisandra Noble Cha, MD / Lisandra Noble Cha, MD Interpreting Provider: Lisandra Noble Cha, MD Consult Discharge Plan - Plan Referrals: Renetta Dwyer CNP [Primary Care Provider] - (Web requested 11-16-16) Thang Day MD [Partnered Physician] - 12/04/16 11:30 am (Please follow up at this time at the cancer center) <Sherwin Henderson - Last Filed: 11/19/16 17:11> Date of Encounter: 11/19/16 - Constitutional Vitals: Temp Pulse Resp BP Pulse Ox 99.3 F 69 16 114/67 95 11/19/16 15:16 11/19/16 15:16 11/19/16 15:16 11/19/16 15:16 11/19/16 15:16 Internal Medicine: Result - Labs CBC & Chem 7: 11/17/16 13:37 11/18/16 04:34 - ABG Interpretation ABG results: PT/INR, D-dimer PT 25.2 Seconds (9.4-12.1) H D 11/19/16 03:37 D-Dimer 2059 ng/mLFEU (0-500) H 11/18/16 15:08 - Impressions Impressions Abdomen/Pelvis CT 11/18/16 16:30 IMPRESSION: Acute thrombosis of the left external iliac vein extending to the common femoral vein with secondary moderate edema in the upper aspect of the left thigh. No underlying mass or compression is seen. Interval cholecystectomy. D/ / Vic Kaye MD / Vic Kaye MD Interpreting Provider: Vic Kaye MD Chest CT 11/18/16 16:30 IMPRESSION: No acute intrathoracic process identified. D/ / Lisandra Noble Cha, MD / Lisandra Noble Cha, MD Interpreting Provider: Lisandra Noble Cha, MD - Attending Attestation I examined this patient and my medical decision-making was reviewed with the DRY CLEANING COUNTER CLERK/PA/Advanced Practice Nurse/Resident Physician. I agree with the documented findings, disposition and treatment plan as described except to the extent set forth below. Possible D/C tomorrow. D/W baker paint.
[2016-11-19] MEDS: *HR* HYDROcodone/Acet 5/325 mg TABLET PO PRN (17:16)
[2016-11-19] MEDS ORDERED: *HR* Warfarin 3 MG TABLET PO ONE (18:00)
[2016-11-20 04:53] LABS: INR 2.1; Prothrombin Time 22.7 Seconds (9.4-12.1)
[2016-11-20 05:09] LABS: Calcium 8.8 mg/dL (8.6-10.8); Potassium 3.8 mEq/L (3.5-4.5)
[2016-11-20] MEDS: Gabapentin 100 MG CAPSULE PO SCH (08:03)
--- NOTE | 2016-11-20 09:33 | Discharge Summary ---
<Bucky Brooks - Last Filed: 11/20/16 10:13> Date of Encounter: 11/20/16 Time of Encounter: 09:49 - Discharge Diagnosis (1) Deep vein thrombosis of lower extremity Priority: Primary Status: Acute Qualifiers: Affected thrombotic vein of extremity: iliac Laterality: left Chronicity : acute Qualified Code(s): I82.422 - Acute embolism and thrombosis of left iliac vein (2) Chronic kidney disease (CKD) Priority: Secondary Status: Acute Qualifiers: Chronic kidney disease stage: stage 4 (severe) Qualified Code(s): N18.4 - Chronic kidney disease, stage 4 (severe) (3) Hypothyroid Priority: Secondary Status: Acute Qualifiers: Hypothyroidism type: unspecified Qualified Code(s): E03.9 - Hypothyroidism , unspecified (4) Chest pain Priority: Secondary Status: Acute Qualifiers: Chest pain type: other chest pain Qualified Code(s): R07.89 - Other chest pain; R07.8 - Other chest pain (5) Frail elderly Priority: Secondary Status: Acute - Discharge Medications Prescriptions: HYDROcodone/Acet 5/325 mg [[place] 5-325 mg] 1 tab PO Q8H PRN #21 tablet PRN Reason: Pain Warfarin perPT [Coumadin perPT] 2 mg PO DAILY@1800 #30 each Home Medications: Calcitonin-[place], Synthetic [Miacalcin] 1 spray NS DAILY 11/16/16 [History] Calcium Carbonate [Calcium] 500 mg PO DAILY 11/16/16 [History] Cholecalciferol (D-3) [Vitamin D] 1,000 unit PO DAILY 11/16/16 [History] Gabapentin [Neurontin] 100 mg PO DAILY 11/16/16 [History] Levothyroxine Sodium [Levo-T] 75 mcg PO QAM 11/16/16 [History] Lisinopril [Zestril] 2.5 mg PO DAILY 11/16/16 [History] Pravastatin Sodium [Pravachol] 40 mg PO HS 11/16/16 [History] Zolpidem Tartrate 5 mg PO HS 11/16/16 [History] HYDROcodone/Acet 5/325 mg [[place] 5-325 mg] 1 tab PO Q8H PRN #21 tablet 11/20/16 [Rx] Sennosides/Docusate Sodium [Senna Plus] 2 each PO BID PRN #0 tablet 11/20/16 [Rx ] Warfarin perPT [Coumadin perPT] 2 mg PO DAILY@1800 #30 each 11/20/16 [Rx] Allergies/Adverse Reactions: Allergies prednisone Allergy (Verified 11/15/16 20:10) Nausea Sulfa (Sulfonamide Antibiotics) Allergy (Verified 11/15/16 20:10) Rash Procedures/tests Complete & Pending: Procedures Performed prior 72 hours Category Date Time Status CT LE LT wo con [CT] Stat Cat Scan 11/17/16 13:[address] abd pelvis wo no iv no oral [CT] Routine Cat Scan 11/18/16 16:[address] chest w/o contrast [CT chest wo con] [CT] Routine Cat Scan 11/18/16 16:30 Completed US retroperitoneal comp [US] Routine Exams 11/18/16 16:00 Completed Date of admission: 11/16/16 18:38 Primary care physician: Renetta Dwyer CNP Discharging clinician: Bucky Brooks Anticipated date of discharge: 11/20/16 - Patient Status Disposition: Home, Self-Care Condition: Good Functional capacity at discharge: independent ambulation Overall status at discharge: patient is progressing back to baseline - Discharge Instructions Instructions: Warfarin (By mouth), Deep Venous Thrombosis (DC), Chronic Hypertension (DC) Follow Up With: Renetta Dwyer CNP [Primary Care Provider] - 11/22/16 3:00 pm () Thang Day MD [Partnered Physician] - 12/04/16 11:30 am (Please follow up at this time at the cancer center) - Diet and Activity Activity: increase activity as tolerated Diet: advance to your usual diet, other (follow instructions given to you. ) Hospital course: Ms. Rsoa is a 86 year old female who was admitted for a Spontaneous DVt of the Left lower extremity. the thrombus was from the left iliac to tibial. She had a VQ scan that was negative for a PE. She would also have a CT of the abdomen/pelvis and chest that did not show any signs of mass or malignancy. she was seen in consultation by Heme onc. She was started on a heparin drip and transitioned to Coumadin.INr is currently stable. She did have some adjustments over the weekend. Initially started on 5 mg however her INR was rapidly increasing and so she was decreased to 1.5 mg. I discussed with our clinical pharmacist. we will discharge her on 2mg a day and she will follow up with her PCP for monitoring. She will also follow up with Hematology. Today she is doing quite well. She has no major lab ambnormalities. Ambulating on her own. she is eating and drinking and having normal bowel and bladder function. We will discharge her today. She has voiced back understanding and agreement to the above plan. - Time Spent with Patient Total time spent providing and/or coordinating discharge services: Greater than 30 minutes (I spent approximately 35 minutes discharging this patient.) - Constitutional Vitals: Temp Pulse Resp BP Pulse Ox 98.7 F 67 18 122/61 96 11/20/16 07:10 11/20/16 07:10 11/20/16 07:10 11/20/16 07:10 11/20/16 07:10 General appearance: Present: A&O X 3, answers questions appropriately - Head Head exam: Present: atraumatic, normocephalic - Eye Eye exam: Present: PERRL, conjuntiva pink, sclera anicteric Pupils: Present: PERRL - Neck Neck exam general surgery: Present: supple, trachea midline. Absent: lymphadenopathy - Respiratory Respiratory exam: Present: CTAB. Absent: accessory muscle use, rales, rhonchi, wheezes - Cardiovascular Cardiovascular exam: Present: RRR, +S1, +S2. Absent: diastolic murmur, gallop, rubs, systolic murmur - GI/Abdominal GI/Abdominal exam: Present: normal bowel sounds, soft, no peritoneal signs. Absent: distended, tenderness - Extremities Exam Extremities exam: Present: pedal edema (Left 2+ to the level of the knee. unchanged from yesterday. ), warm, radial pulses palpable and symetrical. Absent: calf tenderness, cyanotic - Skin Skin exam: Present: dry, intact <Sherwin Henderson - Last Filed: 11/20/16 15:13> Date of Encounter: 11/20/16 Procedures/tests Complete & Pending: Procedures Performed prior 72 hours Category Date Time Status CT abd pelvis wo no iv no oral [CT] Routine Cat Scan 11/18/16 16:[address] chest w/o contrast [CT chest wo con] [CT] Routine Cat Scan 11/18/16 16:30 Completed US retroperitoneal comp [US] Routine Exams 11/18/16 16:00 Completed Date of admission: 11/16/16 18:38 Primary care physician: Renetta Dwyer [facility] Hospital course: Ms. Rosa is a 86 year old female - Time Spent with Patient Total time spent providing and/or coordinating discharge services: - Constitutional Vitals: Temp Pulse Resp BP Pulse Ox 97.3 F L 74 18 148/70 97 11/20/16 11:25 11/20/16 11:25 11/20/16 11:25 11/20/16 11:25 11/20/16 11:25 - Attending Attestation I examined this patient and my medical decision-making was reviewed with the WOOD CLUB NECK WHIPPER/PA/Advanced Practice Nurse/Resident Physician. I agree with the documented findings, disposition and treatment plan as described except to the extent set forth below. INR therapeutic. D/C home today. Continue with coumadin. Follow up as outpatient.
[2016-11-20 11:27] VITALS: BP 148/70
[2016-11-20] MEDS ORDERED: *HR* Warfarin 2 MG TABLET PO ONE (13:15)
--- NOTE | 2016-11-21 12:24 | Internal Med Progress Note ---
Date of Encounter: 11/16/16 Time of Encounter: 13:00 - Assessment and plan (1) Deep vein thrombosis of lower extremity Status: Acute Assessment and plan: Venous Doppler left LE shows extensive acute DVT in left iliac through tibial vein; V/Q scan shows low probability of PE; continue anticoagulation with IV Heparin drip; no indication for IR-guided thrombolysis for now. D/w Hematology, will f/up full consult; f/up hypercoagulability panel; Qualifiers: Affected thrombotic vein of extremity: iliac Laterality: left Chronicity : acute Qualified Code(s): I82.422 - Acute embolism and thrombosis of left iliac vein (2) Chronic kidney disease (CKD) Status: Chronic Assessment and plan: patient likely has underlying CKD due to HTN and age-related changes; continue to follow serum creatinine; Qualifiers: Chronic kidney disease stage: stage 4 (severe) Qualified Code(s): N18.4 - Chronic kidney disease, stage 4 (severe) (3) Hypothyroid Status: Chronic Qualifiers: Hypothyroidism type: unspecified Qualified Code(s): E03.9 - Hypothyroidism , unspecified (4) Hypertension Status: Chronic Qualifiers: Hypertension type: essential hypertension Qualified Code(s): I10 - Essential (primary) hypertension - Subjective Interval history: Reports improving pain and swelling in left leg; no chest pain or shortness of breath, palpitations; not requiring O2; - Constitutional Vitals: Temp Pulse Resp BP Pulse Ox 97.3 F L 74 18 148/70 97 11/20/16 11:25 11/20/16 11:25 11/20/16 11:25 11/20/16 11:25 11/20/16 11:25 General appearance: Present: A&O X 3, answers questions appropriately - Respiratory Respiratory exam: Present: CTAB. Absent: accessory muscle use, rales, rhonchi, wheezes - Cardiovascular Cardiovascular exam: Present: RRR, +S1, +S2. Absent: diastolic murmur, gallop, rubs, systolic murmur - GI/Abdominal GI/Abdominal exam: Present: normal bowel sounds, soft, no peritoneal signs. Absent: distended, tenderness - Extremities Exam Extremities exam: Present: pedal edema (left LE edema, involving foot and leg), warm, radial pulses palpable and symetrical. Absent: calf tenderness, cyanotic Internal Medicine: Result - Labs CBC & Chem 7: 11/17/16 13:37 11/20/16 03:59 - ABG Interpretation ABG results: PT/INR, D-dimer PT 22.7 Seconds (9.4-12.1) H 11/20/16 03:59 D-Dimer 2059 ng/mLFEU (0-500) H 11/18/16 15:08 Consult Discharge Plan - Plan Instructions: Warfarin (By mouth), Deep Venous Thrombosis (DC), Chronic Hypertension (DC) Referrals: Renetta Dwyer CNP [Primary Care Provider] - 11/22/16 3:00 pm () Thang Day MD [Partnered Physician] - 12/04/16 11:30 am (Please follow up at this time at the cancer center) Prescriptions: HYDROcodone/Acet 5/325 mg [[place] 5-325 mg] 1 tab PO Q8H PRN #21 tablet PRN Reason: Pain Warfarin perPT [Coumadin perPT] 2 mg PO DAILY@1800 #30 each
--- NOTE | 2016-11-25 14:39 | Internal Med Progress Note ---
Date of Encounter: 11/18/16 Time of Encounter: 12:00 - Assessment and plan (1) Deep vein thrombosis of lower extremity Status: Acute Assessment and plan: unprovoked initial episode; improving leg swelling and pain; continue IV Heparin drip for anticoagulation along with oral Coumadin; patient may be a poor candidate for Lovenox due to renal dysfunction; monitor PT/INR and adjust Coumadin dosing; bedrest and left leg elevation; PE has been ruled out; Hematology consult noted, agree with current management; needs outpatient f/up; Qualifiers: Affected thrombotic vein of extremity: iliac Laterality: left Chronicity : acute Qualified Code(s): I82.422 - Acute embolism and thrombosis of left iliac vein (2) Chronic kidney disease (CKD) Status: Chronic Assessment and plan: serum creatinine noted to be stable; will obtain renal ultrasound to evaluate for CKD; Qualifiers: Chronic kidney disease stage: stage 4 (severe) Qualified Code(s): N18.4 - Chronic kidney disease, stage 4 (severe) (3) Hypothyroid Status: Chronic Qualifiers: Hypothyroidism type: unspecified Qualified Code(s): E03.9 - Hypothyroidism , unspecified (4) Hypertension Status: Chronic Qualifiers: Hypertension type: essential hypertension Qualified Code(s): I10 - Essential (primary) hypertension - Subjective Interval history: Feels a lot better today with improved left leg pain and swelling; no chest pain or dyspnea; - Constitutional Vitals: Temp Pulse Resp BP Pulse Ox 97.3 F L 74 18 148/70 97 11/20/16 11:25 11/20/16 11:25 11/20/16 11:25 11/20/16 11:25 11/20/16 11:25 General appearance: Present: A&O X 3, answers questions appropriately - Respiratory Respiratory exam: Present: CTAB. Absent: accessory muscle use, rales, rhonchi, wheezes - Cardiovascular Cardiovascular exam: Present: RRR, +S1, +S2. Absent: diastolic murmur, gallop, rubs, systolic murmur - GI/Abdominal GI/Abdominal exam: Present: normal bowel sounds, soft, no peritoneal signs. Absent: distended, tenderness - Extremities Exam Extremities exam: Present: full ROM (improving left knee flexion), pedal edema ( improving diffuse edema and tenderness in left LE, pulses palpable), warm, radial pulses palpable and symetrical. Absent: calf tenderness, cyanotic Internal Medicine: Result - Labs CBC & Chem 7: 11/17/16 13:37 11/20/16 03:59 - ABG Interpretation ABG results: PT/INR, D-dimer PT 22.7 Seconds (9.4-12.1) H 11/20/16 03:59 D-Dimer 2059 ng/mLFEU (0-500) H 11/18/16 15:08 Consult Discharge Plan - Plan Instructions: Warfarin (By mouth), Deep Venous Thrombosis (DC), Chronic Hypertension (DC) Referrals: Renetta Dwyer CNP [Primary Care Provider] - 11/22/16 3:00 pm () Thang Day MD [Partnered Physician] - 12/04/16 11:30 am (Please follow up at this time at the cancer center) Prescriptions: HYDROcodone/Acet 5/325 mg [[place] 5-325 mg] 1 tab PO Q8H PRN #21 tablet PRN Reason: Pain Warfarin perPT [Coumadin perPT] 2 mg PO DAILY@1800 #30 each
== END 2016-11-20 14:08 | disposition home or self-care (01) | DRG 300 ==
LOC: 2ANU 19:33 → EMEROO 19:33 → 2ANU 11-16 00:19 → SUATTDRO 11-16 18:38
PROVIDERS: ADMIT Internal Medicine; ATTEND Internal Medicine